=== PATIENT | male | born 2000 | race African-American/Black ===

== ENCOUNTER → 2020-01-17 | Outpatient (CLI) | payer OTHER ==
--- NOTE | 2020-01-17 21:59 | KCIC ---
Three views left shoulder History: pain, jumped from roof 5 weeks ago Internally and externally rotated AP of shoulder obtained, as well as "Y" view. The glenohumeral relationship is normal. There is a fracture of the distal third left clavicle with full shaft width upward displacement of the proximal phalanx and at least 3 cm override. Impression: Acute traumatic displaced fracture of the distal left clavicle with override. end impression Electronically signed by: Khari Hartmann III, MD (01/17/2020 9:56 PM) [email or web address]
== END ==
LOC: KCIC 13:25
PROVIDERS: ATTEND Family Medicine
DX: S42.92XS Fracture of left shoulder girdle, part unspecified, sequela (principal); X58.XXXS Exposure to other specified factors, sequela
CPT/HCPCS: 73030